=== PATIENT | female | born 1955 | race Caucasian/White ===

== ENCOUNTER 2017-04-16 08:55 | Inpatient (IN) | payer MEDICAID, OTHER ==
[~2017-04-16] VITALS: Ht 172.7 cm; Wt 82.9 kg
[2017-04-16] MEDS ORDERED: PARO20TA3 PO (09:15)
[2017-04-16] MEDS ORDERED: ATOR1TAB21 PO (09:15)
[2017-04-16] MEDS ORDERED: LISINOPRIL-HCTZ PO (09:15)
[2017-04-16] MEDS ORDERED: METH4PACK PO (09:26)
[2017-04-16 10:06] LABS: ANION GAP 8 MEQ/L (8-16); BASO % 0.2 % (0.0-1.0); BLOOD UREA NITROGEN 16 MG/DL (7-18); CALCIUM LEVEL 9.3 MG/DL (8.8-10.2); CARBON DIOXIDE LEVEL 28 MEQ/L (21-32); CHLORIDE LEVEL 102 MEQ/L (98-107); CREATININE FOR GFR 0.81 MG/DL (0.55-1.02); GLOMERULAR FILTRATION RATE > 60.0 (>45); GLUCOSE, FASTING 122 MG/DL (80-110); IMMATURE GRANULOCYTE % 0.4 % (0-0); LYMPH # 1.7 10^3/uL (1.5-4.5); LYMPH % 10.2 % (24.0-44.0); MEAN CORPUSCULAR HEMOGLOBIN 30.9 pg (27.0-33.0); MEAN CORPUSCULAR HGB CONC 33.3 g/dl (32.0-36.5); MEAN CORPUSCULAR VOLUME 92.7 fl (80.0-96.0); MONO # 0.7 10^3/uL (0.0-0.8); MONO % 4.5 % (0.0-5.0); NEUTROPHILS # 13.9 10^3/uL (1.8-7.7); NEUTROPHILS % 84.7 % (36.0-66.0); PLATELET COUNT, AUTOMATED 293 10^3/uL (150-450); POTASSIUM SERUM 3.4 MEQ/L (3.5-5.1); RED CELL DISTRIBUTION WIDTH 13.2 % (11.5-14.5); SODIUM LEVEL 138 MEQ/L (136-145); WHITE BLOOD COUNT 16.3 10^3/uL (4.0-10.0)
[2017-04-16 10:32] LABS: INR 0.93
[2017-04-16] MEDS ORDERED: ISOVUE-370 76% 100ML VIAL (Q9967) As Ordered ONE (11:02)
--- NOTE | 2017-04-16 11:32 | REP ---
CT study of the brain without contrast: History: Left radial nerve palsy. Question CVA. No comparison study. CT findings: Digital lateral machine fastener radiograph is unremarkable. Bone window settings demonstrate an intact bony calvarium. The visualized paranasal sinuses are clear. There is moderate vascular calcification in the distal vertebral and distal carotid arteries bilaterally. Minimal diffuse atrophic changes are seen. There are two areas of abnormal low density in the right cerebral hemisphere, one in the right posterior frontal lobe and the other in the right parietal lobe which could reflect recent infarcts. Recommend further evaluation with MRI scanning. There is no evidence of intracranial hemorrhage. No extra-axial fluid collection, mass or midline shift is appreciated. Impression: Two areas of low density involving the right frontal and right parietal lobe compatible with recent infarcts. Further evaluation recommended with MRI scanning. No evidence of intracranial hemorrhage or mass. Signed by Rosales Ospina MD 04/16/2017 01:22 P
--- NOTE | 2017-04-16 11:34 | REP ---
CT study of the cervical spine without contrast: History: Left radial nerve palsy. Technique: Helical scanning is acquired and overlapping 2 mm high resolution axial images were generated and reviewed at bone and soft tissue window settings. Coronal and sagittal multiplanar re-formations images are generated. CT findings: There is no evidence of cervical spine element fracture. No skull base fracture is seen. Cervical vertebral body heights are preserved. Alignment is normal. Facet joints are normally aligned bilaterally at each cervical level on multiplanar re-formations images. There is no evidence of intraspinal or paraspinal hematoma. No extra vertebral abnormality is seen. There are mild degenerative disc changes at C 05/06 and C6-7 with anterior posterior osteophytic ridging. There is right-sided neural foraminal narrowing at the C5-6 level. Minimal uncovertebral spurring is seen at C3-4. Degenerative changes are seen at C1-2. Impression: Degenerative spondylosis changes, right-sided C5-6 neural foraminal encroachment, otherwise negative CT study of the cervical spine without contrast. No fracture seen. Signed by Rosales Ospina MD 04/16/2017 11:26 A
[2017-04-16] MEDS ORDERED: ASPIRIN 325 MG TAB PO ONE (12:00)
[2017-04-16] MEDS ORDERED: NICOTINE 21MG/24HR 1 EA TRANSDERMAL TD ONE (12:30)
--- NOTE | 2017-04-16 12:33 | REP ---
CT ANGIO of the brain with IV contrast: History: Two areas of low density in the right frontal and parietal lobes suggestive of recent infarct. CT contrast: 75 mL of intravenous Isovue 370. CT findings: Vascular calcification is noted in the distal carotid and vertebral arteries bilaterally. The distal vertebral arteries are patent bilaterally and codominant. Basilar artery is widely patent. Posterior cerebral and superior cerebellar vessels are symmetric. There is no observable flow in the right internal carotid artery in the upper neck or at the skull base. Reconstituted flow is seen in the distal ICA on the right side with perfusion of the right middle and both anterior cerebral arteries via a patent anterior communicator. The right A1 segment is hypoplastic however . No vessel cutoff is seen in the MCA or RIVER distribution. No cleary aneurysm or arteriovenous malformation is seen. The sigmoid sinuses are asymmetric with the left being quite a bit smaller than the right. The sagittal sinus is unremarkable. Impression: Absence of flow in the distal internal carotid artery on the right consistent with ICA occlusion. Somewhat hypoplastic A1 segment on the right. Anterior communicator is patent. Neither posterior communicating artery is well seen. Vascular calcification in the distal vertebral and carotid arteries. Signed by Rosales Ospina MD 04/16/2017 01:26 P
[2017-04-16] MEDS ORDERED: POTASSIUM CHLORIDE 10 MEQ SR TABLET PO ONE (13:00)
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
[2017-04-16] MEDS ORDERED: PRED10TA2 PO (13:04)
[2017-04-16] MEDS ORDERED: LISI20TA PO (13:04)
--- NOTE | 2017-04-16 13:19 | REP ---
Portable chest x-ray: Single view. History: Cough. No comparison study. Findings: Lungs are well inflated and clear. Heart is not enlarged. The aorta is calcific and somewhat tortuous. Pulmonary vasculature is not increased. EKG electrodes are seen. There is a metallic fixation plate in the left humerus. Impression: No active disease. Signed by Rosales Ospina MD 04/16/2017 01:27 P
[2017-04-16 13:38] LABS: CHOLESTEROL LEVEL 194 MG/DL (<200); TRIGLYCERIDES LEVEL 100 MG/DL (<150)
[2017-04-16 14:56] VITALS: BP 147/81
[2017-04-16] MEDS: ACETAMINOPHEN TAB 650MG DOSE (2X325MG) PO PRN ×2 (15:43→21:57)
--- NOTE | 2017-04-16 17:50 | REPUSA ---
MRI of the brain. Clinical history: left arm weakness, possible metastatic disease. Technique: Multiecho multiplanar MRI images of the brain were obtained before and after administratio n of intravenous gadolinium contrast. Findings: The ventricles and sulci are symmetric bilaterally. The brain parenchyma demonstrates scattered areas of T2 hyperintensity in the periventricular and subcortical white matter bilaterally, worse on the r ight. There are numerous areas of restricted diffusion in the right cerebral hemisphere, involving th e right frontal, parietal, and occipital lobes. No enhancement of these lesions is seen on postcontra st images. There is no midline shift, mass effect, or extra-axial fluid collection. The midline intra cranial structures do not demonstrate any gross abnormalities. The cervical cranial junction is intac t. The orbits are unremarkable. The visualized paranasal sinuses and mastoid air cells are clear. The osseous structures and superficial soft tissues are unremarkable. The vascular structures demonstrat e appropriate flow voids. The vascular structures enhancing appropriately. Impression: 1. Numerous areas of restricted diffusion in the right cerebral hemisphere as described, consistent w ith multifocal acute infarcts. 2. Scattered T2 signal changes in the periventricular and subcortical white matter bilaterally is con sistent with moderately severe chronic small vessel ischemic disease. 3. There are no discrete areas of enhancement to suggest metastatic disease at this time. A report of these findings will be called into the facility by our hydrocrane operator.
[2017-04-16 20:00] VITALS: BP 146/83
[2017-04-16] MEDS: PARoxetine 20 MG TAB PO SCH (21:55)
[2017-04-16] MEDS: ATORVASTATIN 20 MG TAB PO SCH (21:55)
[2017-04-17] VITALS: BP 97/55
[2017-04-17 04:00] VITALS: BP 115/76
[2017-04-17 05:17] LABS: BASO % 0.4 % (0.0-1.0); EOS # 0.4 10^3/uL (0.0-0.50); EOS % 3.6 % (0.0-3.0); IMMATURE GRANULOCYTE % 0.3 % (0-0); LYMPH # 3.5 10^3/uL (1.5-4.5); LYMPH % 33.5 % (24.0-44.0); MEAN CORPUSCULAR HEMOGLOBIN 30.8 pg (27.0-33.0); MEAN CORPUSCULAR HGB CONC 33.2 g/dl (32.0-36.5); MONO # 0.6 10^3/uL (0.0-0.8); MONO % 5.9 % (0.0-5.0); NEUTROPHILS # 5.9 10^3/uL (1.8-7.7); NEUTROPHILS % 56.3 % (36.0-66.0); PLATELET COUNT, AUTOMATED 253 10^3/uL (150-450); RED CELL DISTRIBUTION WIDTH 13.2 % (11.5-14.5); WHITE BLOOD COUNT 10.4 10^3/uL (4.0-10.0)
[2017-04-17 05:39] LABS: ALBUMIN 3.5 GM/DL (3.2-5.2); ALBUMIN/GLOBULIN RATIO 1.03 (1.00-1.93); ALKALINE PHOSPHATASE 84 U/L (45-117); ALT/SGPT 20 U/L (12-78); ANION GAP 9 MEQ/L (8-16); AST/SGOT 12 U/L (15-37); BILIRUBIN,TOTAL 0.2 MG/DL (0.2-1.0); BLOOD UREA NITROGEN 15 MG/DL (7-18); CALCIUM LEVEL 8.3 MG/DL (8.8-10.2); CARBON DIOXIDE LEVEL 24 MEQ/L (21-32); CHLORIDE LEVEL 106 MEQ/L (98-107); CREATININE FOR GFR 0.86 MG/DL (0.55-1.02); GLOMERULAR FILTRATION RATE > 60.0 (>45); GLUCOSE, FASTING 100 MG/DL (80-110); POTASSIUM SERUM 3.8 MEQ/L (3.5-5.1); SODIUM LEVEL 139 MEQ/L (136-145); TOTAL PROTEIN 6.9 GM/DL (6.4-8.2)
[2017-04-17 08:00] VITALS: BP 120/57
--- NOTE | 2017-04-17 08:17 | ECGEPIP ---
Stationary ECG Study [facility] - ED Test Date: 2017-04-16 Pat Name: BEN CLEMENTE Department: Room: - Gender: F Orchid Transplanter: olivia : 1955 Requested By: Anival Francis Order Number: [id number] Reading MD: Anival Lynn Measurements Intervals [place] Rate: 85 P: 47 CT: 218 QRS: -12 QRSD: 86 T: 79 QT: 377 QTc: 449 Interpretive Statements SINUS RHYTHM WITH FIRST DEGREE AV BLOCK WITH OCCASIONAL ECTOPIC PREMATURE COMPLEXES POSSIBLE LEFT ATRIAL ENLARGEMENT NONSPECIFIC T-WAVE ABNORMALITY NO PRIORS Electronically Signed On 04-17-2017 8:16:52 EDT by Anival Lynn
[2017-04-17] MEDS ORDERED: ASPIRIN 81 MG ENTERIC TAB PO SCH (09:00)
[2017-04-17 11:30] VITALS: BP_SYST 108; BP_SYST 120; BP_DIAS 57; BP_DIAS 58
--- NOTE | 2017-04-17 12:33 | CR ---
DATE OF CONSULTATION: 04/17/2017 REFERRING PROVIDER: Dr. Addison Crespo. REASON FOR CONSULTATION: Suspected stroke. INDICATION: Kelli Almaguer is a 61-year-old right-handed female with past medical history significant for hypertension, hyperlipidemia, presenting with the chief complaint of experiencing paresthesias of her fingers approximately 4 days ago which progressed to involve her arm as of yesterday. Her left leg gave out on her this morning around 6:30 a.m. when she collapsed out of bed and to the floor. She denies any dysarthria, aphasia. The patient states that her symptoms are still present. Head CT showed hypodensities in the right frontal and right parietal region. The patient does not take any antiplatelet therapy at home and was started on aspirin 325 mg in the emergency department with plan to maintain at a dosage of 81 mg every day. The patient was also told to increase her Lipitor to 40 mg. Plan was to obtain a MRI of the brain with and without contrast which was completed yesterday. Numerous areas of restricted diffusion of the right cerebral hemisphere as described consistent with multifocal acute infarcts. Scattered T2 signal changes in the periventricular and subcortical white matter bilaterally consistent with moderate severe chronic small vessel ischemic disease. There is no discrete areas of enhancement to suggest metastatic disease at this time. The patient did have CT angiogram evidence of occlusion of the right ICA. Absence of flow in the distal internal carotid artery on the right consistent with the ICA occlusion was noted. Somewhat hypoplastic A1 segment of the right RIVER was present. Neither posterior communicating artery is well seen. Vascular calcification of the distal vertebral carotid arteries were noted. There is no cleary aneurysm or arteriovenous malformation noted. The patient was told to be admitted to [facility] with plan to maintain systolic blood pressures 140-180 times another 24 hours maximum. The patient is 4 days probably post her initial onset of her stroke. Telemetry monitoring has been ordered. The patient's stroke is likely related to embolic atherosclerotic disease from her right ICA occlusion. PAST MEDICAL HISTORY: Hypertension. Hyperlipidemia. Depression. Anxiety. ALLERGIES: PENICILLIN. CURRENT MEDICATIONS: - Paxil 20 mg daily - lisinopril/hydrochlorothiazide 20.12.5 mg by mouth daily - Lipitor 20 mg by mouth daily SOCIAL HISTORY: The patient smokes half-a-pack of tobacco per day. Denies any illicit drug use. Occasionally uses alcohol. The patient denies any family history of seizures or strokes. REVIEW OF SYSTEMS: 14-point review of systems is negative except as per HPI. CBC, CMP, TSH, troponin all found to be within normal limits. PHYSICAL EXAMINATION: Blood pressure is 159/87, pulse rate 84, respiratory rate is 18, temperature is 99.4 degrees Fahrenheit, oxygenation 97% on room air. Current height 5 feet 8 inches, current weight is 81 kg. The patient is awake, alert, oriented to person, place and time. Speech, language, comprehension, repetition are intact. Pupils are 3 mm round, reactive to light. Sensation V1, V2, V3 is intact to light touch. No facial asymmetry to activation. Palate elevates symmetrically. There is pronator drift present of the left upper extremity with weakness involving the left deltoid, biceps, triceps, wrist extensor, finger extensor, handgrip. The patient has reasonable 5/5 strength on confrontational testing of the lower extremities. Gait deferred. Sensory is intact to light touch in all four extremities. Coordination: Normal [id number] without any signs of ataxia, dysmetria. ASSESSMENT: 1. Ischemic stroke of the right frontal and parietal region resulting in left arm and leg hemiparesis. 2. Right ICA occlusion. PLAN: 1. Recommend to continue aspirin, however, would recommend to increase dosage to 325 mg daily considering ICA occlusion. 2. Recommend statin therapy atorvastatin 40 mg daily. 3. Physical therapy (PT), occupational therapy (OT). 4. Continue telemetry monitoring. 5. Obtain echocardiogram. 6. The patient can followup in the neurology clinic as an outpatient.
[2017-04-17 16:00] VITALS: BP 148/66
[2017-04-17] MEDS: ACETAMINOPHEN TAB 650MG DOSE (2X325MG) PO PRN (16:29)
--- NOTE | 2017-04-17 17:29 | REP ---
Bilateral carotid artery duplex ultrasound: Peak flow velocity analysis: RIGHT LEFT ICA Peak flow velocity cm/sec occluded 102 ICA Diastolic flow velocity cm/sec occluded 36 ICA/CCA Ratio occluded 1.0 ECA Peak flow velocity cm/sec 74 128 CCA Peak flow velocity cm/sec 90 102 There is bilateral atheromatous plaque. The right internal carotid artery is occluded. Peak flow velocity in the left internal carotid artery is normal indicating less than 50% narrowing, no significant stenosis. The peak flow velocity in the left external carotid artery is mildly elevated compatible with greater than 50% narrowing, likely in the 50 - 69% range. The peak flow velocity in the right external carotid artery is normal. Peak flow velocity in the common carotid artery is normal. There is antegrade flow in the vertebral arteries bilaterally. Impression: Total occlusion of the right internal carotid artery. 50 - 69% stenosis of the left external carotid artery. Signed by Mayank Holman MD 04/17/2017 05:21 P
[2017-04-17] MEDS: NICOTINE 21MG/24HR 1 EA TRANSDERMAL TD SCH (17:57)
--- NOTE | 2017-04-17 19:08 | IPNPDOC ---
Date Seen The patient was seen on 04/17/17. Progress Note Hospitalist Progress Note Subjective: Patient states she is still having some weakness and numbness and tingling in her left upper extremity Objective: Physical Exam: Vitals: Vital Sign - Last 24 Hours 04/16/17 04/16/17 04/17/17 04/17/17 20:00 20:11 00:00 01:02 Temp 99.8 98.4 Pulse 83 75 Resp 18 18 B/P (MAP) 146/83 (104) 97/55 (69) Pulse Ox 95 97 O2 Delivery Room Air Room Air Room Air Room Air 04/17/17 04/17/17 04/17/17 04/17/17 04:00 04:29 08:00 08:00 Temp 98.1 97.7 Pulse 79 80 Resp 18 18 B/P (MAP) 115/76 (89) 120/57 (78) Pulse Ox 99 98 O2 Delivery Room Air Room Air Room Air Room Air 04/17/17 04/17/17 04/17/17 11:30 12:30 16:00 Temp 97.0 98.0 Pulse 96 72 Resp 18 18 B/P (MAP) 108/58 (75) 148/66 (93) Pulse Ox 98 97 O2 Delivery Room Air Room Air Room Air General: Awake, alert, no acute distress HEENT: Normocephalic, atraumatic, extraocular movements intact CV: Regular rate and rhythm Lungs: Clear to auscultation bilaterally Abd: Soft, nontender, nondistended Extremities: No edema Neuro: Alert And oriented 3, normal speech, good strength in all extremities except for the left upper extremity which is weak. Positive left arm drift. Negative facial droop. Psych: Normal mood and affect Labs and Imaging: Laboratory Tests 04/17/17 05:03 Red Blood Count 4.15, Mean Corpuscular Volume 93.0, Mean Corpuscular Hemoglobin 30.8, Mean Corpuscular Hemoglobin Concent 33.2, Red Cell Distribution Width 13.2 , Neutrophils (%) (Auto) 56.3, Lymphocytes (%) (Auto) 33.5, Monocytes (%) (Auto ) 5.9 H, Eosinophils (%) (Auto) 3.6 H, Basophils (%) (Auto) 0.4, Neutrophils # ( Auto) 5.9, Lymphocytes # (Auto) 3.5, Monocytes # (Auto) 0.6, Eosinophils # (Auto ) 0.4, Basophils # (Auto) 0.0, Calcium Level 8.3 L, Aspartate Amino Transf (AST/ SGOT) 12 L, Alanine Aminotransferase (ALT/SGPT) 20, Alkaline Phosphatase 84, Total Bilirubin 0.2, Total Protein 6.9, Albumin 3.5 Assessment and Plan: 61-year-old female with hypertension, hyperlipidemia, anxiety, and eczema who presented with left arm and left leg weakness, as well as tingling in the left hand. She is admitted with multifocal acute infarcts in her right hemisphere. 1. Multifocal acute infarcts: CT of the head shows 100% occlusion of her right ICA. Carotid ultrasound is pending, as is evaluation by neurology. Given the multifocal distribution, we will plan for a transesophageal echo with Dr. Wilkerson tomorrow. The patient has been started on aspirin and Lipitor, and physical therapy and occupational therapy will work with her. Continue to monitor on telemetry. 2. Hypertension: Currently holding home YUMIKO inhibitor/HCTZ to allow permissive hypertension. 3. Anxiety: Continue home Paxil 4. Eczema: Patient frequently takes steroids for flares. 5. Hyperglycemia: A1c is found to be 6.3. This may be secondary to frequent bouts of steroids for her eczema flares. She will need follow-up with her PCP to closely monitor this and ensure she does not need to start any diabetic medications. DVT prophylaxis: SCDs Dispo: pending further workup for acute CVAs VS, I&O, 24H, Fishbone Vital Signs/I&O Vital Signs Date Time Temp Pulse Resp B/P (MAP) Pulse Ox O2 Delivery O2 Flow Rate FiO2 04/17/17 16:00 98.0 72 18 148/66 (93) 97 Room Air I&O- Last 24 Hours up to 6 AM 04/18/17 06:00 Intake Total 1880 ml Output Total 600 ml Balance 1280 ml Laboratory Data 24H LABS Laboratory Tests 2 04/17/17 05:03: Immature Granulocyte % (Auto) 0.3H, White Blood Count 10.4H, Red Blood Count 4.15, Hemoglobin 12.8, Hematocrit 38.6, Mean Corpuscular Volume 93.0, Mean Corpuscular Hemoglobin 30.8, Mean Corpuscular Hemoglobin Concent 33.2, Red Cell Distribution Width 13.2, Platelet Count 253, Neutrophils (%) (Auto) 56.3, Lymphocytes (%) (Auto) 33.5, Monocytes (%) (Auto) 5.9H, Eosinophils (%) (Auto) 3.6H, Basophils (%) (Auto) 0.4, Neutrophils # (Auto) 5.9, Lymphocytes # (Auto) 3.5, Monocytes # (Auto) 0.6, Eosinophils # (Auto) 0.4, Basophils # (Auto) 0.0, Immature Granulocyte # (Auto) 0.0, Nucleated Red Blood Cells % (auto) 0.0, Anion Gap 9, Glomerular Filtration Rate > 60.0, Blood Urea Nitrogen 15, Creatinine 0.86, Sodium Level 139, Potassium Level 3.8, Chloride Level 106, Carbon Dioxide Level 24, Calcium Level 8.3L, Aspartate Amino Transf (AST/SGOT) 12L, Alanine Aminotransferase (ALT/SGPT) 20, Alkaline Phosphatase 84, Total Bilirubin 0.2, Total Protein 6.9, Albumin 3.5, Magnesium Level 2.0, Albumin/ Globulin Ratio 1.03 CBC/BMP Laboratory Tests 04/17/17 05:03 Red Blood Count 4.15, Mean Corpuscular Volume 93.0, Mean Corpuscular Hemoglobin 30.8, Mean Corpuscular Hemoglobin Concent 33.2, Red Cell Distribution Width 13.2 , Neutrophils (%) (Auto) 56.3, Lymphocytes (%) (Auto) 33.5, Monocytes (%) (Auto ) 5.9 H, Eosinophils (%) (Auto) 3.6 H, Basophils (%) (Auto) 0.4, Neutrophils # ( Auto) 5.9, Lymphocytes # (Auto) 3.5, Monocytes # (Auto) 0.6, Eosinophils # (Auto ) 0.4, Basophils # (Auto) 0.0, Calcium Level 8.3 L, Aspartate Amino Transf (AST/ SGOT) 12 L, Alanine Aminotransferase (ALT/SGPT) 20, Alkaline Phosphatase 84, Total Bilirubin 0.2, Total Protein 6.9, Albumin 3.5 MONSE MCINTYRE Apr 17, 2017 19:08
[2017-04-17 20:00] VITALS: BP 140/83
[2017-04-17] MEDS: ATORVASTATIN 20 MG TAB PO SCH (21:04)
[2017-04-17] MEDS: PARoxetine 20 MG TAB PO SCH (21:04)
[2017-04-18] VITALS (7 sets, daily range): BP systolic 113–159; BP diastolic 67–95
[2017-04-18 05:30] LABS: BASO % 0.5 % (0.0-1.0); EOS # 0.3 10^3/uL (0.0-0.50); EOS % 3.6 % (0.0-3.0); IMMATURE GRANULOCYTE % 0.4 % (0-0); LYMPH # 2.8 10^3/uL (1.5-4.5); LYMPH % 33.9 % (24.0-44.0); MEAN CORPUSCULAR HEMOGLOBIN 30.6 pg (27.0-33.0); MEAN CORPUSCULAR HGB CONC 32.7 g/dl (32.0-36.5); MEAN CORPUSCULAR VOLUME 93.6 fl (80.0-96.0); MONO # 0.5 10^3/uL (0.0-0.8); NEUTROPHILS # 4.7 10^3/uL (1.8-7.7); NEUTROPHILS % 55.6 % (36.0-66.0); PLATELET COUNT, AUTOMATED 228 10^3/uL (150-450); RED CELL DISTRIBUTION WIDTH 13.2 % (11.5-14.5); WHITE BLOOD COUNT 8.4 10^3/uL (4.0-10.0)
[2017-04-18 05:53] LABS: ALBUMIN 3.3 GM/DL (3.2-5.2); ALBUMIN/GLOBULIN RATIO 1.18 (1.00-1.93); ALKALINE PHOSPHATASE 79 U/L (45-117); ALT/SGPT 20 U/L (12-78); ANION GAP 5 MEQ/L (8-16); AST/SGOT 13 U/L (15-37); BILIRUBIN,TOTAL 0.2 MG/DL (0.2-1.0); BLOOD UREA NITROGEN 14 MG/DL (7-18); CALCIUM LEVEL 8.4 MG/DL (8.8-10.2); CARBON DIOXIDE LEVEL 29 MEQ/L (21-32); CHLORIDE LEVEL 107 MEQ/L (98-107); CREATININE FOR GFR 0.78 MG/DL (0.55-1.02); GLOMERULAR FILTRATION RATE > 60.0 (>45); GLUCOSE, FASTING 96 MG/DL (80-110); MAGNESIUM LEVEL 1.8 MG/DL (1.8-2.4); POTASSIUM SERUM 4.2 MEQ/L (3.5-5.1); SODIUM LEVEL 141 MEQ/L (136-145); TOTAL PROTEIN 6.1 GM/DL (6.4-8.2)
[2017-04-18] MEDS: NICOTINE 21MG/24HR 1 EA TRANSDERMAL TD SCH (08:00)
[2017-04-18] MEDS: ASPIRIN 325 MG TAB PO SCH (08:00)
[2017-04-18] MEDS ORDERED: LIDOCAINE VISCOUS 2% SOLN 15ML UDC As Ordered ONE (15:11)
[2017-04-18] MEDS ORDERED: MIDAZOLAM INJ 2 MG/2 ML VIAL (J2250) As Ordered ONE ×2 (15:12→15:13)
--- NOTE | 2017-04-18 16:27 | T-ECHO ---
DATE OF PROCEDURE: 04/18/2017 REFERRING PHYSICIAN: Dr. Krystin Schultz PREPROCEDURE DIAGNOSIS: Cryptogenic stroke. POSTPROCEDURE DIAGNOSIS: Cryptogenic stroke, severe atheroma distal aortic arch, probable very tiny patent foramen ovale (PFO). PROCEDURE: Transesophageal echocardiogram with saline contrast times seven with Valsalva maneuver release. PROCEDURE PERFORMED BY: Mika Wilkerson MD COMMERCIAL ESCROW ASSISTANT: None. LIGHT CONSCIOUS SEDATION: Midazolam 4 mg IV. COMPLICATIONS: None. DESCRIPTION OF PROCEDURE: The patient received viscous lidocaine to gargle. Following this, she received a total of 4 mg of midazolam IV for light conscious sedation. Rhythm was sinus. Esophageal intubation was accomplished without difficulty using a Link two-dimensional phased array transesophageal echocardiogram probe. The region of the intraatrial septum appeared anatomically intact and no color flow by color flow Doppler was seen traversing the intraatrial septum. Saline contrast IV times seven was performed with Valsalva maneuver release and was suspicious but not definite (probable) for a very tiny patent foramen ovale; in my opinion, if a PFO is present, it is such that it is unlikely to be successful for being able to cross it with a guidewire and, therefore, unlikely to be successful with percutaneous PFO closure. The atria were without masses or thrombi, or spontaneous echo contrast either in the atria or their appendages. Pulmonary vein inflow in the left upper pulmonary vein was normal by pulse wave Doppler. All of the cardiac valves were structurally and functionally normal. Very mild mitral regurgitation was present and within normal limits. Tricuspid valve was somewhat technically difficult to visualize. No pericardial effusion. The left ventricle appeared normal in size and systolic function. Right ventricle appeared normal in size and systolic function. Mild atheroma was seen in the distal thoracic aorta. However, the distal aortic arch showed severe atheroma, without mobile components. CONCLUSIONS: 1. Severe atheroma in the distal aortic arch. 2. Probable very tiny patent foramen ovale (unlikely to be closed by percutaneous technique in the cardiac catheterization laboratory and unlikely to be the source of this patient's strokes). 3. Normal left ventricle size and systolic function. 4. No other cardiac sources of systemic embolism identified. Copy To: Dr. Krystin Joel
--- NOTE | 2017-04-18 17:18 | IPNPDOC ---
Text Note Date of Service The patient was seen on 04/18/17. NOTE Subjective: no complaints this morning , no leg weakness, left upper extremity weakness is improving . Physical exam: General: Awake, alert, no acute distress HEENT: Normocephalic, atraumatic, extraocular movements intact CV: Regular rate and rhythm Lungs: Clear to auscultation bilaterally Abd: Soft, nontender, nondistended Extremities: No edema Neuro: Alert And oriented 3, normal speech, good strength in all extremities except for the left upper extremity which is weak. Positive left arm drift. Negative facial droop. Psych: Normal mood and affect Labs and Imaging: As below. Assessment and Plan: 61-year-old female with hypertension, hyperlipidemia, anxiety, and eczema who presented with left arm and left leg weakness, as well as tingling in the left hand. She is admitted with multifocal acute infarcts in her right hemisphere. 1. Multifocal acute infarcts: CT of the head and carotic ultrasound shows 100% occlusion of her right ICA. Given the multifocal distribution, had a transesophageal echo with Dr. Wilkerson shows extensive atheromatous disease of the aortic arch which probably is the source of the emboli. Also probably a very small PFO which cannot be fixed in cardiac lab percutaneously as is very small and guidewire will not pass through it also it is unlikely the cause of stroke. The patient has been started on aspirin and Lipitor, and physical therapy and occupational therapy are working with her. Continue to monitor on telemetry. 2. Hypertension: Currently holding home YUMIKO inhibitor/HCTZ to allow permissive hypertension for 72 hours . If Bps high then will start antihypertensives from tomorrow. 3. Anxiety: Continue home Paxil 4. Eczema: Patient frequently takes steroids for flares. 5. Hyperglycemia: A1c is found to be 6.3. This may be secondary to frequent bouts of steroids for her eczema flares. She will need follow-up with her PCP to closely monitor this and ensure she does not need to start any diabetic medications. DVT prophylaxis: SCDs VS,Fishbone, I+O VS, Fishbone, I+O Laboratory Tests 04/18/17 05:10 Red Blood Count 3.89 L, Mean Corpuscular Volume 93.6, Mean Corpuscular Hemoglobin 30.6, Mean Corpuscular Hemoglobin Concent 32.7, Red Cell Distribution Width 13.2, Neutrophils (%) (Auto) 55.6, Lymphocytes (%) (Auto) 33.9, Monocytes (%) (Auto) 6.0 H, Eosinophils (%) (Auto) 3.6 H, Basophils (%) ( Auto) 0.5, Neutrophils # (Auto) 4.7, Lymphocytes # (Auto) 2.8, Monocytes # (Auto ) 0.5, Eosinophils # (Auto) 0.3, Basophils # (Auto) 0.0, Calcium Level 8.4 L, Aspartate Amino Transf (AST/SGOT) 13 L, Alanine Aminotransferase (ALT/SGPT) 20, Alkaline Phosphatase 79, Total Bilirubin 0.2, Total Protein 6.1 L, Albumin 3.3 Vital Signs Date Time Temp Pulse Resp B/P (MAP) Pulse Ox O2 Delivery O2 Flow Rate FiO2 04/18/17 16:15 97.0 70 18 159/95 (116) 98 Room Air I&O- Last 24 Hours up to 6 AM 04/19/17 06:00 Intake Total 480 ml Output Total 800 ml Balance -320 ml SAUL CASAREZ MD Apr 18, 2017 17:18
[2017-04-18] MEDS: ATORVASTATIN 20 MG TAB PO SCH (21:37)
[2017-04-18] MEDS: PARoxetine 20 MG TAB PO SCH (21:37)
[2017-04-19 06:00] VITALS: BP 130/68
[2017-04-19 06:59] LABS: BASO % 0.3 % (0.0-1.0); EOS # 0.3 10^3/uL (0.0-0.50); EOS % 2.8 % (0.0-3.0); IMMATURE GRANULOCYTE % 0.3 % (0-0); LYMPH # 2.4 10^3/uL (1.5-4.5); LYMPH % 26.9 % (24.0-44.0); MEAN CORPUSCULAR HEMOGLOBIN 31.4 pg (27.0-33.0); MEAN CORPUSCULAR HGB CONC 33.5 g/dl (32.0-36.5); MEAN CORPUSCULAR VOLUME 93.6 fl (80.0-96.0); MONO # 0.6 10^3/uL (0.0-0.8); MONO % 6.7 % (0.0-5.0); NEUTROPHILS # 5.7 10^3/uL (1.8-7.7); PLATELET COUNT, AUTOMATED 218 10^3/uL (150-450); RED CELL DISTRIBUTION WIDTH 12.9 % (11.5-14.5)
[2017-04-19 07:21] LABS: ALBUMIN 2.9 GM/DL (3.2-5.2); ALBUMIN/GLOBULIN RATIO 1.04 (1.00-1.93); ALKALINE PHOSPHATASE 65 U/L (45-117); ALT/SGPT 16 U/L (12-78); ANION GAP 5 MEQ/L (8-16); AST/SGOT 13 U/L (15-37); BILIRUBIN,TOTAL 0.3 MG/DL (0.2-1.0); BLOOD UREA NITROGEN 13 MG/DL (7-18); CALCIUM LEVEL 8.3 MG/DL (8.8-10.2); CARBON DIOXIDE LEVEL 28 MEQ/L (21-32); CHLORIDE LEVEL 109 MEQ/L (98-107); CREATININE FOR GFR 0.89 MG/DL (0.55-1.02); GLOMERULAR FILTRATION RATE > 60.0 (>45); GLUCOSE, FASTING 90 MG/DL (80-110); MAGNESIUM LEVEL 1.8 MG/DL (1.8-2.4); POTASSIUM SERUM 4.2 MEQ/L (3.5-5.1); SODIUM LEVEL 142 MEQ/L (136-145); TOTAL PROTEIN 5.7 GM/DL (6.4-8.2)
[2017-04-19] MEDS: ASPIRIN 325 MG TAB PO SCH (08:34)
[2017-04-19] MEDS: NICOTINE 21MG/24HR 1 EA TRANSDERMAL TD SCH (08:35)
[2017-04-19] MEDS ORDERED: NICO21PAT TD (11:28)
[2017-04-19] MEDS ORDERED: ASPI1TAB20 PO (11:28)
[2017-04-19] MEDS ORDERED: ATOR1TAB21 PO (11:28)
--- NOTE | 2017-04-20 23:20 | DSES ---
DATE OF ADMISSION: 04/16/2017 DATE OF DISCHARGE: 04/19/2017 PRIMARY CARE PROVIDER: Batool Blackman DISCHARGE DIAGNOSES: Multifocal acute cerebral infarcts in the right cerebral hemisphere. 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 Hypertension. Anxiety. Eczema. Possibly drug induce hyperglycemia related to frequent use of steroids. DISCHARGE MEDICATIONS: - aspirin 325 mg by mouth daily - atorvastatin 40 mg by mouth daily - nicotine 1 patch daily - lisinopril/hydrochlorothiazide 20/12.5 one tablet by mouth daily - paroxetine 20 mg at bedtime - prednisone 10 mg by mouth as directed for eczema breakout HOSPITAL COURSE: This is a 61-year-old female presented to the hospital for left arm and left leg weakness. The patient underwent CT head which was negative, underwent cervical spine CT, which showed degenerative spondylosis of the right side of C5-6 with foraminal encroachment. Subsequently she underwent CT angio of the brain which showed absence of flow in the distal internal carotid artery on the right consistent with internal carotid artery occlusion. There was some mild hypoplastic A1 segment on the right. Anterior communicator was patent. Posterior communicating artery was not well seen. There were vascular calcifications in the distal vertebral and carotid arteries. The patient then underwent MRI of the brain which showed numerous areas of restricted diffusion in the right cerebral hemisphere consistent with multifocal acute infarcts. There was addition also moderately severe chronic small vessel ischemic disease. The patient was monitored on telemetry. The patient then underwent vascular ultrasound of the carotid arteries which did not show any significant narrowing in the external carotid arteries or in the left internal carotid artery. Antegrade flow in the vertebral artery was noted. She then underwent transesophageal echocardiogram to look for source of multiple emboli. The patient was found to have severe atheroma in the distal aortic arch which was felt to be the source of her emboli. The patient was also found to have a probable very tiny patent foramen ovale which the supervisor covering and lining felt was unlikely to be closed by percutaneous technique in the cardiac catheterization lab and it was also felt to be an unlikely source of the patient's strokes. No other cardiac source of systemic emboli was identified. The patient's blood work was sent for a stroke workup which is still in progress. The patient was also seen by Dr. Guerrier from neurology. On the day of discharge, the patient was seen by physical therapy and occupational therapy during hospitalization. The patient's left leg weakness improved and resolved. Her left upper extremity weakness also improved. However, she still continued to have some problem with her drip. So patient was suggested to continue with outpatient physical therapy (PT) and occupational therapy (OT). On the day of discharge, the patient did not have any complaints. Her vitals were stable and she was functionally close to her baseline. PHYSICAL EXAMINATION: VITAL SIGNS: Temperature 97.4, pulse 70, respiratory rate 16, blood pressure 130/60, pulse oximetry 93% on room air. GENERAL: The patient awake, alert and oriented times three. Sitting up in bed in no acute distress. HEENT: Normocephalic, atraumatic. Moist mucous membranes. Anicteric eyes. CHEST: Clear to auscultation. CARDIOVASCULAR: S1, S2, regular. No rub, murmur or gallop. ABDOMEN: Soft, nontender. Bowel sounds present. EXTREMITIES: No edema. LABORATORY DATA: WBC 9, hemoglobin 11.3, platelet 218. Sodium 142, potassium 4.2 , chloride 109. Bicarbonate 28, BUN 13, creatinine 0.8. Glucose 90, calcium 8.3. Liver function tests are normal. Lipid panel is normal. Coagulation profile is normal. Hypercoagulability workup is pending. DISPOSITION: The patient is discharged home in stable condition. DISCHARGE INSTRUCTIONS: The patient to followup with primary care provider in 1 week. The patient to followup with neurology in 2 weeks. PATIENCE
[2017-04-25 00:08] LABS: APTT 24.8 sec (.); Anticardiolipin Ab, IgA <10 APL (.); DRVTT Screen Seconds 39.2 sec (.); PROTEIN C ANTIGEN 94 % (60-150); PROTEIN S ANTIGEN FREE 92 % (57-157); PROTEIN S ANTIGEN TOTAL 84 % (60-150); SJOGREN'S ANTI SS-A <0.2 AI (0.0-0.9); SJOGREN'S ANTI SS-B <0.2 AI (0.0-0.9)
== END 2017-04-19 16:00 | disposition home or self-care (01) | DRG 45 ==
LOC: M ED 08:55 → M ED INP 12:42 → M PCU 14:46 → M MSPAV 04-18 22:49
PROVIDERS: ADMIT Internal Medicine; ATTEND Internal Medicine Nephrology
PROC: B246ZZ4 Ultrasonography of Right and Left Heart, Transesophageal (ICD-10-PCS; principal; 2017-04-18 16:00)
DX: I63.131 Cerebral infarction due to embolism of right carotid artery (principal); G81.94 Hemiplegia, unspecified affecting left nondominant side; I10 Essential (primary) hypertension; F41.9 Anxiety disorder, unspecified; E78.5 Hyperlipidemia, unspecified; I70.0 Atherosclerosis of aorta; L30.9 Dermatitis, unspecified; R73.9 Hyperglycemia, unspecified; F17.210 Nicotine dependence, cigarettes, uncomplicated; E87.6 Hypokalemia; Z79.899 Other long term (current) drug therapy; Z88.0 Allergy status to penicillin

== ENCOUNTER → 2017-09-20 | Outpatient (CLI) | payer OTHER | LOC: M RAD 08:09 | DX: I65.23 Occlusion and stenosis of bilateral carotid arteries (principal) ==

== ENCOUNTER → 2017-10-20 | Outpatient (CLI) | payer OTHER ==
[~2017-10-20] MED LIST: ISOVUE-370 76% 100ML VIAL (Q9967) As Ordered
== END ==
LOC: M RAD 16:07
DX: I65.23 Occlusion and stenosis of bilateral carotid arteries (principal)

== ENCOUNTER → 2018-05-21 | Outpatient (CLI) | payer OTHER | LOC: M RAD 12:24 | DX: I65.23 Occlusion and stenosis of bilateral carotid arteries (principal) | CPT/HCPCS: 93880 ==

== ENCOUNTER → 2019-05-09 | Outpatient (CLI) | payer OTHER ==
[~2019-05-09] MED LIST changes: +ASPI325T57 PO; +ATOR1TAB21 PO; -ISOVUE-370 76% 100ML VIAL (Q9967) As Ordered; +LISI20TA19 PO; +LISINOPRIL-HCTZ PO; +METH4PACK PO; +NICO21PAT TD; +PARO20TA3 PO; +PRED10TA2 PO
--- NOTE | 2019-05-09 21:16 | REP ---
Clinical: Right-sided occlusion. Comparison: 05/21/2018 . Technique: Conway scale and color Doppler evaluation using linear high frequency transducer Findings: Two-dimensional conway scale and color images demonstrate moderate mixed atheromatous plaquing of the bilateral common carotid arteries and carotid bulbs near complete occlusion of the right internal carotid artery and mild atheromatous plaquing of the left internal carotid artery. Relatively normal laminar flow is appreciated. Moderate spectral broadening noted. Normal flow direction is appreciated in the bilateral vertebral arteries. RIGHT (cm/s) LEFT (cm/s) ICA peak systolic velocity 22.7 94.7 ICA diastolic velocity 11.1 30.4 ECA peak systolic velocity 48.8 59.1 CCA peak systolic velocity 67.1 89.5 ICA/CCA ratio 0.34 1.06 Impression: 1. Current examination suggests approximately 90% occlusion of the right internal carotid artery and less than 50% narrowing of the left internal carotid artery. Electronically Signed by Rashid Hernandez MD 05/09/2019 09:08 P
== END ==
LOC: M RAD 09:00
PROVIDERS: ATTEND Physician Assistant
DX: I65.23 Occlusion and stenosis of bilateral carotid arteries (principal)

== ENCOUNTER → 2020-05-22 | Outpatient (CLI) | payer SELFPAY ==
[~2020-05-22] MED LIST changes: -LISI20TA19 PO; +LISI20TA35 PO
== END ==
LOC: M LABSMTC 13:50
PROVIDERS: ATTEND Pediatrics
DX: Z20.828 Contact with and (suspected) exposure to other viral communicable diseases (principal)

== ENCOUNTER → 2022-04-19 | Outpatient (CLI) | payer MEDICARE, OTHER | LOC: M WHC 04-04 10:12 | DX: M81.0 Age-related osteoporosis without current pathological fracture (principal) ==